=== PATIENT | male | born 1945 | race Caucasian/White ===

== ENCOUNTER 2016-06-28 11:44 | Emergency (ER) | payer MEDICARE ==
[2016-06-28] MEDS ORDERED: Thiamine IV* 100 MG, Folic Acid IV* 1 MG, Multiple Vitamin IV ADULT* 10 ML in NS 0.9% 1... IV ONE ×2 (12:58→14:26)
--- NOTE | 2016-06-28 13:33 | RAD ---
HISTORY: Generalized weakness COMPARISONS: March 19, 2015 TECHNIQUE: Multiple contiguous axial CT scans were obtained of the head without intravenous contrast. FINDINGS: HEMORRHAGE/INFARCT: There is no hemorrhage or acute infarct. MASSES/SHIFT: There is no mass or shift. EXTRA-AXIAL SPACES: There are no extra-axial fluid collections. SULCI AND VENTRICLES: The sulci and ventricles are normal in size and position for the patient's stated age. CEREBRUM: There is a chronic lacunar infarct of the right caudate head. There is mild diffuse hypoattenuation of the periventricular white matter. BRAINSTEM: There are no focal parenchymal abnormalities. CEREBELLUM: There are no focal parenchymal abnormalities. VESSELS: The vessels are grossly normal. PARANASAL SINUSES: The paranasal sinuses are clear. ORBITS: The orbits are unremarkable. BONES AND SOFT TISSUE: No bone or soft tissue abnormalities are noted. OTHER: None IMPRESSION: 1. NO ACUTE INTRACRANIAL PATHOLOGY. 2. STABLE CHRONIC SMALL VESSEL ISCHEMIC CHANGES
[2016-06-28 13:44] LABS: Hematocrit 40 % (42-52); Hemoglobin 13.3 g/dl (14.0-18.0); Mean Corpuscular HGB Conc 34 g/dl (31-36); Mean Corpuscular Hemoglobin 31 pg (27-31); Mean Corpuscular Volume 93 fL (80-94); Red Blood Count 4.28 10^6/ul (4.0-5.4); Red Cell Distribution Width 18 % (10.5-15); White Blood Count 5.2 10^3/ul (3.5-10.8)
[2016-06-28 13:47] LABS: Add Diff/Slide Review? Slide Review Added; Comments Flag Yes
--- NOTE | 2016-06-28 13:59 | RAD ---
Indication: Episodes of weakness Comparison: March 23, [address] March 19, 2015 chest radiograph. Technique: Upright AP 1315 hours Report: Clear lungs and pleural spaces. Negative for pneumothorax. Negative for cardiomegaly. Unremarkable central pulmonary vasculature. Moderately tortuous descending thoracic aorta without significant change accounting for mild rightward rotation. IMPRESSION: No evidence for acute intrathoracic disease.
[2016-06-28 14:00] LABS: Ammonia 40 mol/L (16-53)
[2016-06-28 14:02] LABS: ALT 41 U/L (7-52); Albumin 3.7 g/dL (3.2-5.2); Alkaline Phosphatase 113 U/L (34-104); BUN/Creatinine Ratio 15.3 (8-20); Blood Urea Nitrogen 11 mg/dL (6-24); C Reactive Protein 7.05 mg/L (< 5.00); CO2 Carbon Dioxide 26 mmol/L (22-32); Calcium 8.6 mg/dL (8.6-10.3); Chloride 102 mmol/L (101-111); Creatine Kinase 116 U/L (10-223); EGFR African American 139.2 (>60); EGFR Non-African American 108.2 (>60); Globulin 2.8 g/dL (2-4); Glucose 97 mg/dL (70-100); Lipase 17 U/L (11.0-82.0); Magnesium 1.2 mg/dL (1.9-2.7); Sodium 137 mmol/L (133-145); Total Protein 6.5 g/dL (6.4-8.9)
[2016-06-28 14:04] LABS: Troponin I 0.03 ng/mL (<0.04)
[2016-06-28 14:05] LABS: B Type Natriuretic Peptide 75 pg/mL
[2016-06-28] MEDS ORDERED: Magnesium Sulfate 2 GM IV* 2 GM/50 ML BAG IVPB ONE (14:26)
[2016-06-28 14:30] LABS: Mean Platelet Volume 8 um3 (7.4-10.4)
[2016-06-28 14:32] LABS: Acetaminophen < 15 mcg/mL; Alcohol < 10 mg/dL (<10); Salicylate < 2.50 mg/dL (<30)
[2016-06-28 14:40] LABS: TSH (Thyroid Stimulating Horm) 1.13 mcIU/mL (0.34-5.60)
[2016-06-28 14:47] VITALS: BP 175/144
[2016-06-28 15:06] LABS: AST 86 U/L (13-39); Anion Gap 9 mmol/L (2-11); Potassium 3.2 mmol/L (3.5-5.0)
[2016-06-28] MEDS ORDERED: Potassium Chlor TAB* 20 MEQ TAB.ER PO ONE (16:26)
--- NOTE | 2016-06-28 16:34 | ED ---
Christian Cummings Erika, scribed for Tiago Andino MD on 06/28/16 at 1304 . Complex/Multi-Sys Presentation - HPI Summary HPI Summary: Patient is a 71-year-old male presenting to the ED with a CC of generalized weakness. Patient reports he developed symptoms of diffuse paresthesias, myalgias, tremors, and weakness starting 4 days ago, which have been gradually worsening and are significantly worse today. Pt states he was unable to stand up today, so called his son and came to the ED. Patient developed dry heaving and diarrhea this morning. Patient denies confusion, impaired mentation, focal weakness, focal numbness, headache, visual changes, cough, chest congestion, chest pain, SOB, abdominal pain, vomiting, decreased PO intake, and urinary symptoms. He does note nasal discharge. Pt states he did not take his medication this morning due to weakness. Patient reports a Hx hyponatremia about 1 year ago, and states symptoms feel similar. He takes 81 mg ASA daily. Hx EtOH dependence - patient drinks daily. He denies Hx withdrawal seizures. Hx HTN, hyperlipidemia, GERD, glaucoma, TIA. Patient denies Hx kidney disease, and denies Hx abdominal surgeries. Patient lives alone. - History Of Current Complaint Chief Complaint: EDWeakness Time Seen by Provider: 06/28/16 12:38 Hx Obtained From: Patient, Family/[employer] - Son Onset/Duration: Gradual Onset, Lasting Days, Worse Since - today Timing: Constant Severity Currently: Moderate Severity Initially: Mild Associated Signs And Symptoms: Positive: Weakness, Diarrhea, Other - paresthesia. Negative: Confusion, Headache, SOB, Cough, Chest Pain, Edema, Vomiting, Dysuria, Decreased Oral Intake - Allergies/Home Medications Allergies/Adverse Reactions: Allergies Allergy/AdvReac Type Severity Reaction Status Date / Time Lansoprazole [From Prevacid] Allergy Unknown Unknown Verified 02/13/15 12:33 Reaction Details Omeprazole [From Prilosec] Allergy Unknown Unknown Verified 02/13/15 12:33 Reaction Details Varenicline [From Chantix] Allergy Unknown Verified 09/25/15 12:50 Reaction Details Home Medications: Home Medications Magnesium Oxide TAB* [MagOx 400 TAB*] 400 mg PO DAILY 06/28/16 [History Confirmed 06/28/16] PMH/Surg Hx/FS Hx/Imm Hx Endocrine/Hematology History: Denies: Hx Anemia, Hx Unexplained Bleeding Cardiovascular History: Reports: Hx Hypercholesterolemia, Hx Hypertension, Hx Syncope - 10/17/14 Respiratory History: Reports: Hx Chronic Obstructive Pulmonary Disease (COPD), Hx Sleep Apnea GI History: Reports: Hx Gastroesophageal Reflux Disease Sensory History: Reports: Hx Contacts or Glasses, Hx Glaucoma Opthamlomology History: Reports: Hx Contacts or Glasses, Hx Glaucoma Psychiatric History: Reports: Hx Depression, Hx Substance Abuse - ETOH - Surgical History Surgery Procedure, Year, and Place: bilateral knees, nose operation Hx Anesthesia Reactions: No - Immunization History Date of Tetanus Vaccine: Unk Date of Influenza Vaccine: Fall 2012 Infectious Disease History: No Infectious Disease History: Denies: Hx Hepatitis, Hx Tuberculosis, Traveled Outside the [place] in Last 30 Days - Family History Known Family History: Positive: Cardiac Disease, Diabetes - Social History Alcohol Use: Daily Alcohol Amount: 1-2L scotch weekly Substance Use Type: Reports: None Hx Tobacco Use: Yes Smoking Status (MU): Heavy Every Day Tobacco Smoker Review of Systems Negative: Blurred Vision Negative: Chest Pain Negative: Shortness Of Breath, Cough Gastrointestinal: Other - dry heaving Positive: Diarrhea. Negative: Abdominal Pain, Vomiting Negative: burning, dysuria, frequency Positive: Myalgia Neurological: Other - tremors Positive: Weakness, Paresthesia. Negative: Headache, Slurred Speech All Other Systems Reviewed And Are Negative: Yes Physical Exam Triage Information Reviewed: Yes Vital Signs On Initial Exam: Initial Vitals Temp Pulse Resp BP Pulse Ox 99.3 F 83 20 176/101 99 06/28/16 11:46 06/28/16 11:46 06/28/16 11:46 06/28/16 11:46 06/28/16 11:46 Vital Signs Reviewed: Yes Appearance: Positive: Well-Appearing, No Pain Distress Skin: Positive: Warm, Skin Color Reflects Adequate Perfusion, Dry Head/Face: Positive: Normal Head/Face Inspection Eyes: Positive: EOMI, PINO ENT: Positive: Normal ENT inspection Neck: Positive: Supple, Nontender Respiratory/Lung Sounds: Positive: Clear to Auscultation, Breath Sounds Present Cardiovascular: Positive: RRR Abdomen Description: Positive: Nontender, Soft Bowel Sounds: Positive: Present Musculoskeletal: Positive: Normal, Strength/ROM Intact. Negative: Edema Left, Edema Right Neurological: Positive: Alert, Oriented to Person Place, Time, Other - Tremor bilateral arms and legs. No obvious confusion. [id number] intact Psychiatric: Positive: Affect/Mood Appropriate - [place] Coma Scale Coma Scale Total: 15 Diagnostics - Vital Signs Vital Signs Temp Pulse Resp BP Pulse Ox 06/28/16 11:51 99.3 F 85 20 176/101 99 06/28/16 11:46 99.3 F 83 20 176/101 99 - Laboratory Lab Results: Lab Results 06/28/16 06/28/16 06/28/16 Range/Units 13:30 13:30 13:30 WBC 5.2 (3.5-10.8) 10^3/ul RBC 4.28 (4.0-5.4) 10^6/ul Hgb 13.3 L (14.0-18.0) g/dl Hct 40 L (42-52) % MCV 93 (80-94) fL MCH 31 (27-31) pg MCHC 34 (31-36) g/dl RDW 18 H (10.5-15) % Plt Count 95 L (150-450) 10^3/ul MPV 8 (7.4-10.4) um3 Neut % (Auto) 75.3 (38-83) % Lymph % (Auto) 14.9 L (25-47) % Gaines % (Auto) 8.2 (1-9) % Eos % (Auto) 0.2 (0-6) % Baso % (Auto) 1.4 (0-2) % Absolute Neuts (auto) 3.9 (1.5-7.7) 10^3/ul Absolute Lymphs (auto) 0.8 L (1.0-4.8) 10^3/ul Absolute Monos (auto) 0.4 (0-0.8) 10^3/ul Absolute Eos (auto) 0 (0-0.6) 10^3/ul Absolute Basos (auto) 0.1 (0-0.2) 10^3/ul Absolute Nucleated RBC 0 10^3/ul Nucleated RBC % 0.1 Hem Pathologist Commnt INR (Anticoag Therapy) 0.86 L (0.89-1.11) APTT 34.4 (26.0-36.3) seconds Sodium 137 (133-145) mmol/L Potassium 3.2 L (3.5-5.0) mmol/L Chloride 102 (101-111) mmol/L Carbon Dioxide 26 (22-32) mmol/L Anion Gap 9 (2-11) mmol/L BUN 11 (6-24) mg/dL Creatinine 0.72 (0.67-1.17) mg/dL Est GFR ( Amer) 139.2 (>60) Est GFR (Non-Af Amer) 108.2 (>60) BUN/Creatinine Ratio 15.3 (8-20) Glucose 97 (70-100) mg/dL Lactic Acid (0.5-2.0) mmol/L Calcium 8.6 (8.6-10.3) mg/dL Magnesium 1.2 L (1.9-2.7) mg/dL Total Bilirubin 1.60 H (0.2-1.0) mg/dL AST 86 H (13-39) U/L ALT 41 (7-52) U/L Alkaline Phosphatase 113 H (34-104) U/L Ammonia (16-53) mol/L Total Creatine Kinase 116 (10-223) U/L CK-MB (CK-2) 2.2 (0.6-6.3) ng/mL Troponin I 0.03 (<0.04) ng/mL C-Reactive Protein 7.05 H (< 5.00) mg/L B-Natriuretic Peptide ( - 100) pg/mL Total Protein 6.5 (6.4-8.9) g/dL Albumin 3.7 (3.2-5.2) g/dL Globulin 2.8 (2-4) g/dL Albumin/Globulin Ratio 1.3 (1-3) Lipase 17 (11.0-82.0) U/L TSH 1.13 (0.34-5.60) mcIU/mL Salicylates < 2.50 (<30) mg/dL Acetaminophen < 15 mcg/mL Serum Alcohol < 10 (<10) mg/dL 06/28/16 06/28/16 Range/Units 13:30 13:30 WBC (3.5-10.8) 10^3/ul RBC (4.0-5.4) 10^6/ul Hgb (14.0-18.0) g/dl Hct (42-52) % MCV (80-94) fL MCH (27-31) pg MCHC (31-36) g/dl RDW (10.5-15) % Plt Count (150-450) 10^3/ul MPV (7.4-10.4) um3 Neut % (Auto) (38-83) % Lymph % (Auto) (25-47) % Gaines % (Auto) (1-9) % Eos % (Auto) (0-6) % Baso % (Auto) (0-2) % Absolute Neuts (auto) (1.5-7.7) 10^3/ul Absolute Lymphs (auto) (1.0-4.8) 10^3/ul Absolute Monos (auto) (0-0.8) 10^3/ul Absolute Eos (auto) (0-0.6) 10^3/ul Absolute Basos (auto) (0-0.2) 10^3/ul Absolute Nucleated RBC 10^3/ul Nucleated RBC % Hem Pathologist Commnt INR (Anticoag Therapy) (0.89-1.11) APTT (26.0-36.3) seconds Sodium (133-145) mmol/L Potassium (3.5-5.0) mmol/L Chloride (101-111) mmol/L Carbon Dioxide (22-32) mmol/L Anion Gap (2-11) mmol/L BUN (6-24) mg/dL Creatinine (0.67-1.17) mg/dL Est GFR ( Amer) (>60) Est GFR (Non-Af Amer) (>60) BUN/Creatinine Ratio (8-20) Glucose (70-100) mg/dL Lactic Acid 1.6 (0.5-2.0) mmol/L Calcium (8.6-10.3) mg/dL Magnesium (1.9-2.7) mg/dL Total Bilirubin (0.2-1.0) mg/dL AST (13-39) U/L ALT (7-52) U/L Alkaline Phosphatase (34-104) U/L Ammonia 40 (16-53) mol/L Total Creatine Kinase (10-223) U/L CK-MB (CK-2) (0.6-6.3) ng/mL Troponin I (<0.04) ng/mL C-Reactive Protein (< 5.00) mg/L B-Natriuretic Peptide 75 ( - 100) pg/mL Total Protein (6.4-8.9) g/dL Albumin (3.2-5.2) g/dL Globulin (2-4) g/dL Albumin/Globulin Ratio (1-3) Lipase (11.0-82.0) U/L TSH (0.34-5.60) mcIU/mL Salicylates (<30) mg/dL Acetaminophen mcg/mL Serum Alcohol (<10) mg/dL Result Diagrams: 06/28/16 13:30 06/28/16 13:30 Lab Statement: Any lab studies that have been ordered have been reviewed, and results considered in the medical decision making process. - Radiology CXR Radiology Interpretation Completed By: Radiologist - IMPRESSION: No evidence for acute intrathoracic disease. - CT Brain CT CT Interpretation Completed By: Radiologist - IMPRESSION: 1. NO ACUTE INTRACRANIAL PATHOLOGY. 2. STABLE CHRONIC SMALL VESSEL ISCHEMIC CHANGES - EKG 14:25 Cardiac Rate: NL - at 70 bpm EKG Rhythm: Sinus Rhythm ST Segment: Normal Ectopy: None Re-Evaluation - Re-Evaluation First Eval Re-Evaluation Time: 14:23 Comment: Discussed results. Pt was able to ambulate. Pt would prefer discharge if possible - will continue banana bag and give magnesium and monitor Complex Multi-Symp Course/Dx Course Of Treatment: NO CRITICAL CARE TIME Assessment/Plan: DISCUSSED RESULTS WITH PATIENT AND SON. DISCUSSED ADMISSION. PATIENT WISHES TO GO HOME. DISCUSSED HIM TAKING HIS MEDICATIONS AT HOME AND F/U WITH PMD. DISCHARGE HOME STABLE. - Diagnoses Provider Diagnoses: Hypomagnesemia, Hypokalemia, Weakness - Physician Notifications Discussed Care Of Patient With: Dr. Ni (hospitalist) at 14:07 - discussed possible admission. will road test pt. Discharge - Discharge Plan Condition: Stable Disposition: HOME Patient Education Materials: Hypomagnesemia (ED), Hypokalemia (ED), Weakness ( ED) Referrals: Saundra Pruitt MD [Primary Care Provider] - Additional Instructions: FOLLOW UP WITH YOUR DOCTOR. TAKE YOUR MEDICATIONS DIRECTED. RETURN TO THE EMERGENCY DEPARTMENT FOR ANY WORSENING OF YOUR CONDITION OR QUESTIONS OR CONCERNS. The documentation as recorded by the Christian hernandez Erika accurately reflects the service I personally performed and the decisions made by me, Tiago Andino MD.
== END 2016-06-28 16:50 | disposition home or self-care (01) ==
LOC: ED 11:44
DX: R19.7 Diarrhea, unspecified (principal); R20.0 Anesthesia of skin; E83.42 Hypomagnesemia; E87.6 Hypokalemia
CPT/HCPCS: 36415; 70450; 71010; 80053; 80320; 80329; 82140; 82550; 82553; 83605; 83690; 83735; 83880; 84443; 84484; 85025; 85060; 85610; 85730; 86140; 93005; 99283; A9270-GY; G0480